=== PATIENT | male | born 1955 | race Caucasian/White ===

== ENCOUNTER 2017-09-05 08:17 | Emergency (ER) | payer SELFPAY ==
[~2017-09-05] VITALS: Ht 177.8 cm; Wt 81.0 kg
[2017-09-05] MEDS ORDERED: IBUPROFEN 600MG TABLET PO ONE (09:00)
[2017-09-05] MEDS ORDERED: CYCLOBENZAPRINE 10MG TABLET PO ONE (09:00)
[2017-09-05 10:22] VITALS: BP 134/82
== END 2017-09-05 10:53 | disposition home or self-care (01) ==
LOC: ER 08:28
DX: M25.551 Pain in right hip (principal); R07.81 Pleurodynia; Z88.2 Allergy status to sulfonamides; V49.88XA Car occupant (driver) (passenger) injured in other specified transport accidents, initial encounter; Y93.89 Activity, other specified; Y92.410 Unspecified street and highway as the place of occurrence of the external cause; Y99.8 Other external cause status
CPT/HCPCS: 71111; 73521; 99284; Z7610